=== PATIENT | female | born 2000 | race Hispanic/Latino ===

== ENCOUNTER 2025-02-11 14:05 | Emergency (ER) | payer OTHER, SELFPAY ==
[2025-02-11 14:19] VITALS: BP 107/57; PULSE 103; RESP 16; TEMP 38.3; O2SAT 99
[2025-02-11 14:53] LABS: EDSTREPNEGPOS1 Positive (Negative)
[2025-02-11 14:58] LABS: EDCOVIDSCREEN Negative (Negative); EDINFLUASCREEN Negative (Negative); EDINFLUBSCREEN Negative (Negative)
--- NOTE | 2025-02-11 14:59 | ED.URI ---
HPI - URI/Sore Throat General Chief Complaint: Upper Respiratory Infection Stated Complaint: body hurts,HYLTON, throat hurts Source: patient and RN notes reviewed Mode of arrival: ambulatory Limitations: no limitations and language barrier (Friend in room can speak Azeri) History of Present Illness HPI Narrative: 24-year-old female presents to the [facility] complaining of fever and sore throat x1 day. Patient took Tylenol prior to arrival. She denies any cough, body aches, chills, shortness of breath, difficulty breathing, difficulty swallowing. Related Data Allergies Allergy/AdvReac Type Severity Reaction Status Date / Time No Known Allergies Allergy Verified 02/11/25 14:33 Review of Systems Review of Systems: CONSTITUTIONAL: Denies chills, or sweats. Positive for fevers EYES: Denies visual changes, redness, or discharge. ENT: Denies rhinorrhea, congestion, otalgia. Positive for sore throat CARDIOVASCULAR: Denies chest pain, palpitations, or edema. RESPIRATORY: Denies cough or dyspnea. GASTROINTESTINAL: Denies abdominal pain, nausea, vomiting, or diarrhea. GENITOURINARY: Denies dysuria or hematuria. SKIN: Denies rash or itching. MUSCULOSKELETAL: Denies back pain, joint pain, or myalgia. NEUROLOGIC: Denies headache, numbness, or weakness. PSYCHIATRIC: Denies anxiety or depression. All other systems reviewed are negative, except as documented in HPI. PMFSH Comments At the time of my signature, I reviewed and agree with the nursing past medical, surgical, social, and family history. There is no relevant family history pertinent to the patient complaint. Exam Narrative: GENERAL: This is a well-nourished, well-developed adult, in no apparent distress. They are non ill-appearing, nontoxic appearing. HEAD: normocephalic, atraumatic. EYES: Sclera clear/white. Vision is grossly intact. EARS: External ears normal, auditory canals clear and without drainage, TMs normal without perforation. Hearing grossly intact. NOSE: External nose normal with no obvious nasal discharge, nares without redness, no rhinorrhea. THROAT: Mucous membranes moist, posterior pharynx is erythematous without exudate. Tonsils are enlarged. Uvula is midline NECK: Neck supple, mild tenderness with cervical lymphadenopathy, no masses or thyromegaly. CARDIOVASCULAR: Regular rate and rhythm without murmurs, gallops, or rubs. RESPIRATORY: Clear to auscultation. Breath sounds equal bilaterally. No wheezes, rales, or rhonchi. SKIN: warm, Dry, intact with no suspicious lesions or rash, good texture and turgor. NEURO: awake, alert, and oriented to person, place and time. There were no obvious focal neurologic abnormalities. EXTREMITIES: no edema noted BACK: Nontender without deformity. Course Course Emergency Course: Patient is aware of diagnosis, understands and agrees to treatment plan. Anticipatory guidance given. Patient agrees to follow-up as directed and is aware of reasons to seek care at the emergency department. Portions of this record may have been created with voice recognition software Level of Care: Express Care Visit Vital Signs Vital signs: Vital Signs Temperature 100.9 F H 02/11/25 14:19 Pulse Rate 103 H 02/11/25 14:19 Respiratory Rate 16 02/11/25 14:19 Blood Pressure 107/57 L 02/11/25 14:19 Pulse Oximetry 99 02/11/25 14:19 Oxygen Delivery Room Air 02/11/25 14:19 Temperature 100.9 F H 02/11/25 14:19 Pulse Rate 103 H 02/11/25 14:19 Respiratory Rate 16 02/11/25 14:19 Blood Pressure 107/57 L 02/11/25 14:19 Pulse Oximetry 99 02/11/25 14:19 Oxygen Delivery Room Air 02/11/25 14:19 Reviewed MDM - URI/Sore Throat MDM Narrative Medical decision making narrative: Patient's rapid strep was positive. Her COVID and flu were negative. Her symptoms are consistent with a strep pharyngitis. Her tonsils are enlarged however she has not have any difficulty breathing, difficulty swallowing or in any acute distress. She has been given a 1 time dose of dexamethasone to help with the swelling. We will treat empirically with amoxicillin. Discussed physical exam findings. Advised supportive measures and signs/symptoms to go to the ER. Pt is appropriate for outpt treatment and f/u. Differential Diagnosis Differential diagnosis: Likely upper respiratory infection, viral infection and pharyngitis (Strep pharyngitis) Lab Data Attestation: I reviewed the patient's lab results. Labs: Lab Results 02/11/25 Range/Units 14:28 POC Influenza A Ag Negative (Negative) POC Influenza B Ag Negative (Negative) POC SARS CoV-2 Ag Negative (Negative) POC Grp A Strep Screen Positive (Negative) Critical Care Time Critical Care Time Critical Care Time: No Discharge Plan Discharge Clinical Impression: Acute streptococcal pharyngitis Patient Disposition: Home, Self-Care Condition: Stable Instructions: Antibiotic Form Additional Instructions: You tested positive for strep throat. ?Please take the amoxicillin as prescribed until gone. ?You will be contagious for 24 hours after starting the medication. After 24 hours on antibiotics throw tooth brush away and start using a new one. Wash your sheets and cup/water bottle that is used daily. Do not share drink You were given a dose of dexamethasone for the swelling in your throat. Take Tylenol or Ibuprofen for pain or fever, if able. ?Rest and stay hydrated. ?Follow up with your PCP in 3 days if symptoms are not improving. ?Go to the ER immediately if you develop worsening symptoms such as shortness of breath, difficulty swallowing. ? Usted ansley positivo para faringitis estreptoc?cica. [place] la amoxicilina seg?n lo recetado hasta que se acabe. Ser? contagioso melisa 24 horas despu?s de comenzar a dayan el medicamento. Despu?s de 24 horas con antibi?ticos, deseche el cepillo de dientes y comience a usar lauren nuevo. Lave leslie s?carlee y la taza/botella de agua que usa a diario. No comparta bebidas. Le dieron magy dosis de dexametasona para la inflamaci?n de la garganta. [place] Tylenol o ibuprofeno para el dolor o la fiebre, si puede. Descanse y mant?ngase hidratado. Marilyn un seguimiento con damian m?dico de cabecera en 3 d?as si los s?ntomas no mejoran. Vaya a la hal de emergencias inmediatamente si presenta s?ntomas que empeoran, valerie falta de aire o dificultad para tragar. Patient Language: Indonesian Prescriptions: New amoxicillin 500 mg tablet 500 mg PO Q12H 10 Days Qty: 20 0RF Follow-up/Referrals: PHYSICIAN,DATA SECURITY ADMINISTRATOR [Primary Care Provider] - Time of Disposition: 15:04
[2025-02-11] MEDS: dexAMETHasone SOD PHOS INJ 10 MG/ML 1 ML VIAL IM (15:09)
== END 2025-02-11 15:17 | disposition home or self-care (01) ==
DX: J02.0 Streptococcal pharyngitis (principal)
CPT/HCPCS: 87426; 87804; 87880; 96372; 99203; G0463; J1100